=== PATIENT | male | born 2000 | race African-American/Black ===

== ENCOUNTER 2025-02-02 10:13 | Emergency (ER) | payer SELFPAY ==
--- NOTE | 2025-02-02 10:37 | ER ---
Nurse's Notes [facility] Name: Louie Almanza III Age: 24 yrs Sex: Male : 2000 Arrival Date: 02/02/2025 Time: 10:13 Bed 18 Private MD: Diagnosis: Rash and other nonspecific skin eruption Presentation: 02/02 10:29 Chief complaint: Patient states: BLISTERS APPEARING ON LT FOOT ABOUT 2 MONTHS AGO. PT dd2 DENIES PAIN, REPORTS PEELING AND ITCHING. Coronavirus screen: At this time, the client does not indicate any symptoms associated with coronavirus-19. Ebola Screen: No symptoms or risks identified at this time. Initial Sepsis Screen: Does the patient meet any 2 criteria? No. Patient's initial sepsis screen is negative. Does the patient have a suspected source of infection? No. Patient's initial sepsis screen is negative. Risk Assessment: Do you want to hurt yourself or someone else? Patient reports no desire to harm self or others. Onset of symptoms is unknown. 10:29 Method Of Arrival: Ambulatory dd2 10:29 Acuity: DEANN 4 dd2 Triage Assessment: 10:31 General: Appears in no apparent distress. Behavior is calm, cooperative, appropriate dd2 for age. Pain: Denies pain. EENT: No deficits noted. No signs and/or symptoms were reported regarding the EENT system. Neuro: No deficits noted. Cardiovascular: No deficits noted. Respiratory: No deficits noted. GI: No deficits noted. No signs and/or symptoms were reported involving the gastrointestinal system. : No deficits noted. No signs and/or symptoms were reported regarding the genitourinary system. Derm: SMALL FLUID FILLED BLISTERS AND PEELING NOTED TO LT MEDIAL ADN LATERAL FOOT. Reports itching, peeling, LT FOOT. Musculoskeletal: No deficits noted. No signs and/or symptoms reported regarding the musculoskeletal system. Circulation, motion, and sensation intact. Range of motion: intact in all extremities. Historical: - Allergies: 10:31 PENICILLINS; dd2 10:31 Codeine; dd2 - PMHx: 10:31 None; dd2 - PSHx: 10:31 None; dd2 - Immunization history:: Adult Immunizations up to date. - Infectious Disease History:: Denies. - Social history:: Smoking status: Patient denies any tobacco usage or history of. Screenin:34 [facility] ED Fall Risk Assessment (Adult) History of falling in the last 3 months, dd2 including since admission No falls in past 3 months (0 pts) Confusion or Disorientation No (0 pts) Intoxicated or Sedated No (0 pts) Impaired Gait No (0 pts) Mobility Assist Device Used No (0 pt) Altered Elimination No (0 pt) Score/Fall Risk Level 0 - 2 = Low Risk Oriented to surroundings, Maintained a safe environment, Educated pt \T\ family on fall prevention, incl call for assistance when getting out of bed, Assessed \T\ reinforced patient's understanding of fall precautions, Hourly rounding (assess needs \T\ fall precautionary measures) done. Abuse screen: Denies threats or abuse. Denies injuries from another. Nutritional screening: No deficits noted. Tuberculosis screening: No symptoms or risk factors identified. Assessment: 10:32 Reassessment: SEE TRIAGE ASSESSMENT FOR FULL ASSESSMENT. dd2 Vital Signs: 10:29 BP 119 / 58; Pulse 80; Resp 16; Temp 98.2; Pulse Ox 99% on R/A; Weight 115.67 kg; dd2 Height 6 ft. 3 in. ; Pain 0/10; 10:46 BP 121 / 63; Pulse 82; Resp 16; Pulse Ox 100% on R/A; dd2 10:29 Body Mass Index 31.87 (115.67 kg, 190.5 cm) dd2 10:29 Pain Scale: Adult dd2 More Coma Score: 10:34 Eye Response: spontaneous(4). Motor Response: obeys commands(6). Verbal Response: dd2 oriented(5). Total: 15. ED Course: 10:18 Patient arrived in ED. cj3 10:19 Brayden Joyce DO is Attending Physician. ms3 10:28 Arm band placed on Patient placed in an exam room, on a stretcher. ll1 10:30 Triage completed. dd2 10:34 Patient has correct armband on for positive identification. Placed in gown. Call light dd2 in reach. Client placed on continuous cardiac and pulse oximetry monitoring. NIBP monitoring applied. Door closed. Noise minimized. Pillow given. Verbal reassurance given. 10:34 No provider procedures requiring assistance completed. Patient did not have IV access dd2 during this emergency room visit. Patient maintains SpO2 saturation greater than 95% on room air. 10:36 Artur Ruth DO is Referral Physician. ms3 10:46 Provided Education on: D/C EDUCATION. dd2 Administered Medications: 10:33 CANCELLED (Physician Discretion): ns 0.9% 1000 ml IV at 1000 ml once; to be given as a dd2 bolus over 60 minutes Medication: 10:34 VIS not applicable for this client. dd2 Outcome: 10:36 Discharge ordered by MD. ms3 10:46 Discharged to home ambulatory, dd2 10:46 Condition: stable 10:46 Discharge instructions given to patient, Instructed on discharge instructions, follow up and referral plans. medication usage, Demonstrated understanding of instructions, follow-up care, medications, Prescriptions given X 1, 10:47 Patient left the ED. dd2 Signatures: Gina Garber RN RN ll1 Brayden Joyce DO DO ms3 GWENDOLYN MENSAH RN RN dd2 Juanis Marr 3
--- NOTE | 2025-02-02 10:37 | EDPHYS ---
Physician Documentation [facility] Name: Louie Almanza III Age: 24 yrs Sex: Male : 2000 Arrival Date: 02/02/2025 Time: 10:13 Bed 18 Private MD: ED Physician Brayden Joyce HPI: 02/02 14:41 This 24 yrs old Black Male presents to ER via Ambulatory with complaints of Foot ms3 Problem- LT. 14:41 24-year-old male with no past medical history presents to the emergency department for ms3 left foot rash has been ongoing for 2 months and is itching. Patient states he has been applying athlete's foot cream for the last 2 days with improvement of his symptoms. 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 Historical: - Allergies: 10:31 PENICILLINS; dd2 10:31 Codeine; dd2 - PMHx: 10:31 None; dd2 - PSHx: 10:31 None; dd2 - Immunization history:: Adult Immunizations up to date. - Infectious Disease History:: Denies. - Social history:: Smoking status: Patient denies any tobacco usage or history of. ROS: 14:41 Constitutional: Negative for fever, and chills. Cardiovascular: Negative for chest ms3 pain, and palpitations. Respiratory: Negative for shortness of breath, cough, wheezing, and pleuritic chest pain, Abdomen/GI: Negative for abdominal pain, nausea, vomiting, diarrhea, and constipation, MS/Extremity: Negative for injury and deformity, 14:41 Skin: Positive for Scaling rash on left foot, Exam: 14:41 Constitutional: This is a well developed, well nourished patient who is awake, alert, ms3 and in no acute distress. Cardiovascular: Regular rate and rhythm with a normal S1 and S2. No gallops, murmurs, or rubs. Normal PMI, no JVD. No pulse deficits. Respiratory: Lungs have equal breath sounds bilaterally, clear to auscultation and percussion. No rales, rhonchi or wheezes noted. No increased work of breathing, no retractions or nasal flaring. Abdomen/GI: Soft, non-tender, with normal bowel sounds. No distension or tympany. No guarding or rebound. No evidence of tenderness throughout. 14:41 Skin: Left foot with papules and scaling rash. Vital Signs: 10:29 BP 119 / 58; Pulse 80; Resp 16; Temp 98.2; Pulse Ox 99% on R/A; Weight 115.67 kg; dd2 Height 6 ft. 3 in. ; Pain 0/10; 10:46 BP 121 / 63; Pulse 82; Resp 16; Pulse Ox 100% on R/A; dd2 10:29 Body Mass Index 31.87 (115.67 kg, 190.5 cm) dd2 10:29 Pain Scale: Adult dd2 More Coma Score: 10:34 Eye Response: spontaneous(4). Motor Response: obeys commands(6). Verbal Response: dd2 oriented(5). Total: 15. MDM: 10:36 Medical Screening Exam initiated ms3 14:41 Differential diagnosis: Athletes feet versus cellulitis versus dry skin. Data reviewed: ms3 vital signs, nurses notes, and as a result, I will discharge patient. I considered the following discharge prescriptions or medication management in the emergency department See prescription. Counseling: I had a detailed discussion with the patient and/or guardian regarding the historical points, exam findings, and any diagnostic results supporting the discharge/admit diagnosis, radiology results, the need for outpatient follow up. ED course: Discussed physical exam findings with patient. Patient to follow-up with primary care physician in 2 to 3 days. Patient understands and agrees with plan. All questions were answered. Return precautions were discussed include worsening symptoms, or any other concerns. Administered Medications: 10:33 CANCELLED (Physician Discretion): ns 0.9% 1000 ml IV at 1000 ml once; to be given as a dd2 bolus over 60 minutes Disposition Summary: 02/02/25 10:36 Discharge Ordered Notes: Location: Home ms3 Condition: Stable ms3 Diagnosis - Rash and other nonspecific skin eruption ms3 Followup: ms3 - With: Artur Ruth DO - When: 2 - 3 days - Reason: Recheck today's complaints Discharge Instructions: - Discharge Summary Sheet ms3 Forms: - Medication Reconciliation Form ms3 - Antibiotic Education ms3 - Prescription Opioid Use ms3 - Patient Portal Instructions ms3 - Leadership Thank You Letter ms3 Prescriptions: - Doxycycline Hyclate 100 mg Oral Tablet - take 1 tablet ORAL route every 12 hours; 20 tablet; Refills: 0, Product ms3 Selection Permitted Signatures: Dispatcher [employer] EDMS Brayden Joyce DO DO ms3 GWENDOLYN MENSAH RN RN dd2 Corrections: (The following items were deleted from the chart) 10:33 10:23 IV Saline Lock ordered. ms3 dd2 10: 10:23 Labs collected and sent ordered. ms3 dd2 10: 10:23 NPO ordered. ms3 dd2 10: 10:23 NS 0.9% IV 1000 ml IV at 1000 ml once; to be given as a bolus over 60 minutes dd2 ordered. ms3
[2025-02-02 10:52] VITALS: TEMP 98.2
[2025-02-02 10:54] VITALS: BP 121/63; O2SAT 100
== END 2025-02-02 10:47 | disposition home or self-care (01) ==
LOC: ER 10:13
DX: R21 Rash and other nonspecific skin eruption (principal)
CPT/HCPCS: 99283